=== PATIENT | male | born 1970 | race Caucasian/White ===

== ENCOUNTER 2020-06-26 14:40 | Emergency (ER) | payer SELFPAY ==
[~2020-06-26] VITALS: Ht 175.3 cm; Wt 94.0 kg
[2020-06-26 14:42] VITALS: BP 158/96
[2020-06-26] MEDS ORDERED: ACETAMINOPHEN 325MG TABLET PO ONE (15:15)
[2020-06-26] MEDS ORDERED: TETANUS, DIPHTHERIA, PERTUSSIS VAC/PF 0.5ML (>7YR OLD) IM ONE (16:30)
[2020-06-26] MEDS ORDERED: BACITRACIN ZINC OINT UDPKT TOP ONE (16:30)
[2020-06-26] MEDS ORDERED: LIDOCAINE 1%/EPI 1:100,000 10 ML VIAL IJ ONE (16:30)
== END 2020-06-26 17:37 | disposition home or self-care (01) ==
LOC: ER 14:40
DX: S51.811A Laceration without foreign body of right forearm, initial encounter (principal); W20.8XXA Other cause of strike by thrown, projected or falling object, initial encounter; Y93.89 Activity, other specified; Y92.69 Other specified industrial and construction area as the place of occurrence of the external cause; Z23 Encounter for immunization
CPT/HCPCS: 12004; 73090; 90471; 90715; 99283; J3490

== ENCOUNTER 2020-06-28 08:21 | Emergency (ER) | payer OTHER ==
[~2020-06-28] VITALS: Ht 165.1 cm; Wt 75.0 kg
[2020-06-28 08:27] VITALS: BP 133/80
== END 2020-06-28 10:03 | disposition home or self-care (01) ==
LOC: ER 08:33
DX: Z48.00 Encounter for change or removal of nonsurgical wound dressing (principal)
CPT/HCPCS: 99281

== ENCOUNTER 2020-07-11 09:21 | Emergency (ER) | payer OTHER ==
[~2020-07-11] VITALS: Ht 175.3 cm; Wt 95.0 kg
[2020-07-11 09:24] VITALS: BP 136/91
== END 2020-07-11 10:01 | disposition home or self-care (01) ==
LOC: ER 09:21
DX: S51.811D Laceration without foreign body of right forearm, subsequent encounter (principal); Z48.02 Encounter for removal of sutures; Z90.49 Acquired absence of other specified parts of digestive tract; X58.XXXD Exposure to other specified factors, subsequent encounter
CPT/HCPCS: 99281